=== PATIENT | male | born 1985 | race African-American/Black ===

== ENCOUNTER 2018-04-15 01:58 | Observation (INO) | payer SELFPAY ==
--- NOTE | 2018-04-15 02:20 | ED Physician Documentation ---
General Adult - HISTORIAN Historian: patient - HPI Stated Complaint: 3 day history of nausea, vomiting and diarrhea. Has been vomiting frequent Chief Complaint: Nausea,Vomiting,Diarrhea Additional Information: 3 day history of nausea, vomiting and diarrhea. Has been vomiting frequently, no blood noted. Has had diarrhea once, no blood noted. Has been having some cramping some. Has had some fever, no chills noted. No one else at home has been ill.Has been light headed with position change. . Urinating OK, no as freequently, urine is a dark color Onset: days ago (2 days) Timing: still present Severity: moderate Modifying Factors: N/V post oral intake, usually w/i 15 minutes - ROS CONST: fever, sweating, weakness, chills CVS/RESP: none GI/: vomiting, nausea, diarrhea - PAST HX Past History: other (asthma) Other History: none. denies: pancreatitis, peptic ulcer Surgeries/Procedures: cholecystectomy Immunizations: referred to PCP Allergies/Adverse Reactions: Allergies Allergy/AdvReac Type Severity Reaction Status Date / Time erythromycin base Allergy Intermediate Rash Verified 04/15/18 02:20 Home Medications: Ambulatory Orders Medication Instructions Recorded NK 04/15/18 - SOCIAL HX Smoking History: less than 1 pack/day Alcohol Use: none Drug Use: none - FAMILY HX Family History: No - REVIEWED ASSESSMENTS Nursing Assessment Reviewed: Yes Vitals Reviewed: Yes Procedures Additional Procedures: arterial blood draw (0350, right wrist) Progress - Progress Progress: 04:28 Patient states that he is still nauseated. Not sure that he will be able to keep anything down. Blood work is normal, x-rays are normal. Patient was given options of observation admission with the anticipation of discharge latter this afternoon, spending a few more hours in ED to see if we can get him to feel better or being discharged with antiemetic medication. I have advised admission to observation and he agreed. ED Results Lab/Radiology - Radiology Radiology Impressions: Abdomen series with single view chest History: Nausea and vomiting Findings: A single view of the chest reveals clear lungs and normal heart size. Upright and supine abdomen radiographs reveal a normal bowel gas pattern without obstruction, constipation, or free air. Cholecystectomy clips are observed. Impression: No significant abnormality. General Adult Physical Exam - PHYSICAL EXAM GENERAL APPEARANCE: mild distress EENT: dry mucous membranes (mild) NECK: normal inspection, thyroid normal, supple RESPIRATORY: no resp distress CVS: reg rate & rhythm, heart sounds normal, equal pulses, no murmur, no gallop ABDOMEN: soft, no organomegaly, no distension, tenderness (mild diffuse all 4 quadrants). No: mass, rebound, distended, guarding SKIN: warm/dry, normal color, other (mutiple tattos) EXTREMITIES: non-tender. No: edema NEURO: oriented X3, CN's nml as tested, motor nml, sensation nml, mood/affect nml, cognition normal Discharge Clincal Impression: Viral gastroenteritis Condition: Stable Disposition: ADMITTED INPATIENT Decision to Admit: [id number] Date of Decison to Admit: 04/15/18 Decision Time: 04:53
[2018-04-15] MEDS ORDERED: ONDANSETRON HCL/PF 4 MG/ 2ML VIAL IVP ONE (02:30)
[2018-04-15] MEDS ORDERED: 0.9 % SODIUM CHLORIDE 1,000 ML IV SCH (02:30)
[2018-04-15] MEDS ORDERED: PROMETHAZINE HCL 25 MG in 0.9 % SODIUM CHLORIDE 50 ML IV ONE (03:33)
[2018-04-15] MEDS: 0.9 % SODIUM CHLORIDE 1,000 ML IV SCH ×2 (04:18→14:45)
[2018-04-15] MEDS ORDERED: PROMETHAZINE HCL 25 MG in 0.9 % SODIUM CHLORIDE 50 ML IV PRN (04:48)
[2018-04-15 05:22] VITALS: BMI 20.8
--- NOTE | 2018-04-15 06:26 | Diagnostic Imaging Report ---
DEAN MOE [facility] [id number] [address] [facility] [address] [place] [address]. [id number] Report Submission Date: Apr 15, 2018 3:42:30 AM INSURANCE VERIFICATION CLERK Patient Study Name: ADELA GRADY Date: Apr 15, 2018 3:10:38 AM INSURANCE VERIFICATION CLERK Modality Type: DX Gender: M Description: ABD SERIES PA CHEST : 87 Institution: [facility] Physician: DEAN MOE Abdomen series with single view chest History: Nausea and vomiting Findings: A single view of the chest reveals clear lungs and normal heart size. Upright and supine abdomen radiographs reveal a normal bowel gas pattern without obstruction, constipation, or free air. Cholecystectomy clips are observed. Impression: No significant abnormality. Electronically signed on Apr 15, 2018 3:42:30 AM INSURANCE VERIFICATION CLERK by: Herbie MOFFETT
[2018-04-15 07:22] LABS: eGFR (Non-African) > 60
[2018-04-15 07:23] LABS: BASOPHILS % 0.6 (0.0-1.5); EOSINOPHILS % 0.8 % (0.0-6.8); MEAN CORPUSCULAR HEMOGLOBIN 33.2 pg (28.0-34.0); NEUTROPHILS # 10.5 # k/uL (1.4-7.7)
[2018-04-15 09:09] LABS: APPEARANCE,URINE CLEAR (CLEAR); COLOR,URINE YELLOW (YELLOW); OCCULT BLOOD,URINE NEGATIVE (NEGATIVE)
[2018-04-15] MEDS ORDERED: ACETAMINOPHEN 325 MG TABLET PO ONE (21:22)
[2018-04-15] MEDS ORDERED: ACETAMINOPHEN 325 MG TABLET ONE (21:27)
[2018-04-15 21:59] VITALS: BP 134/77
--- NOTE | 2018-05-21 13:08 | Discharge Summary ---
Discharge Summary - Discharge Sumary Date: 04/16/18 History of Present Illness: 33 yo male with a 3 day history of nausea, vomiting and diarrhea. Has been vomiting frequently, no blood noted. Has had diarrhea once, no blood noted. Has been having some cramping some. Has had some fever, no chills noted. No one else at home has been ill. Has been light headed with position change. . Urinating OK, but not as frequently, urine is a dark color. Patient states that he has not been able to keep anything down over the last 2 days. Mouth is feeling dry. Condition at Discharge: Stable Home Medications: Ambulatory Orders Medication Instructions Recorded Promethazine HCl [Phenergan] 25 mg PO Q6 PRN #20 tablet 04/15/18 Consultations this Visit: None Procedures this Visit: None Allergies/Adverse Reactions: Allergies Allergy/AdvReac Type Severity Reaction Status Date / Time erythromycin base Allergy Intermediate Rash Verified 04/15/18 02:20 Discharge Summary: Patient was started on IV fluids of NS. Patient was given IV ondansteron PRN. Patients vomiting did improve with IV fluids. Diet was advanced and patient was able to tolerate it will. At the time of dismissal patient was feeling better and it was felt that he could be discharged and managed at home. Hospital Course: Admitted: 15 APR 2018. Level of care: OBS. Discharged: 16 APR 2018. Disposition: Home - Final Diagnosis (1) Viral gastroenteritis Problems: improved
== END 2018-04-16 07:20 | disposition home or self-care (01) ==
LOC: ED 01:58 → SOUTH 04:43
PROVIDERS: ADMIT Family Medicine; ATTEND Family Medicine
DX: A08.4 Viral intestinal infection, unspecified (principal)
CPT/HCPCS: 74022; 80053; 81002; 83690; 85025; 87400; 96374; 96375; 99285; G0378; J2405; J2550; J7030; 99217; S1016